=== PATIENT | female | born 2000 | race Caucasian/White ===

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

== ENCOUNTER → 2021-07-01 | Outpatient (CLI) | payer BC ==
[~2021-07-01] MED LIST: CASIRIVIMAB (REGN10933) (EUA) 600 MG, IMDEVIMAB (REGN10987) (EUA) 600 MG in SODIUM CHLO... IVPB ONE; ONDANSETRON 4 MG/2 ML VIAL IVP ONE; SODIUM CHLORIDE 0.9% 50 ML IVPB ONE; SODIUM CHLORIDE 0.9% 500 ML 500 ML in EMPTY BAG 1 BAG IV PRN
[2021-07-01 15:54] VITALS: TEMP 98.9
[2021-07-01 16:04] VITALS: BP 113/67; PULSE 73; RESP 16
== END ==
LOC: PROCWHC3 13:42
PROVIDERS: ATTEND Obstetrics & Gynecology
DX: O98.519 Other viral diseases complicating pregnancy, unspecified trimester (principal); U07.1 COVID-19; Z3A.00 Weeks of gestation of pregnancy not specified; Z91.040 Latex allergy status; Z88.8 Allergy status to other drugs, medicaments and biological substances
CPT/HCPCS: 96360; 96375; J2405; Q0244; M0243

== ENCOUNTER 2022-01-04 05:45 | Inpatient (IN) | payer BC ==
--- NOTE | 2022-01-03 20:55 | P.HPOB ---
History of Present Illness H&P Date: 01/03/22 Chief Complaint: Induction of labor This is a 21 y.o. female, 1, para 0, with an estimated date of confinement of 01/02/2022, estimated gestational age of 40-2/7 weeks, who presents for induction of labor. She complains of irregular contractions, pressure and back pain. has been uncomplicated. labs: Hepatitis B surface antigen-neg RPR-NR Rubella-immune Blood type-O+ Antibody screen-neg HIV-NR Hemoglobin-14.0 Quad-neg 1 hr. GTT-92 GBS-positive OB Hx: Termite Inspector Hx: No hx STDs Social Hx: Single. Works at [employer] Review of Systems Constitutional: Denies chills, Denies fever Eyes: denies blurred vision, denies pain Ears, nose, mouth and throat: Denies headache, Denies sore throat Cardiovascular: Denies chest pain, Denies shortness of breath Respiratory: Denies cough Gastrointestinal: Reports abdominal pain (irregular contractions) Genitourinary: Reports pelvic pain, Reports Musculoskeletal: Reports low back pain Integumentary: Denies pruritus, Denies rash Neurological: Denies numbness, Denies weakness Psychiatric: Denies anxiety, Denies depression Past Medical History Past Medical History: Asthma History of Any Multi-Drug Resistant Organisms: None Reported Past Surgical History: No Surgical Hx Reported Past Psychological History: No Psychological Hx Reported Smoking Status: Never smoker Past Alcohol Use History: None Reported Past Drug Use History: None Reported - Past Family History Father Family Medical History: Diabetes Mellitus Medications and Allergies Home Medications Medication Instructions Recorded Confirmed Type Albuterol Inhaler [Ventolin Hfa 1 - 2 puff INHALATION RT-Q6H PRN 07/03/16 07/03/16 History Inhaler] Allergies Allergy/AdvReac Type Severity Reaction Status Date / Time glycerin Allergy Unknown Verified 07/01/21 15:51 latex Allergy Unknown Verified 07/01/21 15:51 Exam Osteopathic Statement: *. No significant issues noted on an osteopathic structural exam other than those noted in the History and Physical/Consult. HEENT: within normal limits Heart: regular rate and rhythm Lungs: clear to auscultation bilaterally Abdomen: , non-tender Cervix: 2 cm/60%/-2 Extremities: negative Willian's Assessment and Plan (1) 40 weeks gestation of Status: Acute Code(s): Z3A.40 - 40 WEEKS GESTATION OF SNOMED Code(s): 03647860 Plan: Proceed with oxytocin induction of labor. Expectant management. Epidural anesthesia if desired.
[2022-01-04] MEDS ORDERED: OXYTOCIN 10 UNIT/ML 1 ML VIAL IM PRN (06:03)
[2022-01-04] MEDS ORDERED: METHYLERGONOVINE 0.2 MG/ML 1 ML AMP IM PRN (06:03)
[2022-01-04] MEDS ORDERED: LIDOCAINE 0.5% (PF) 5 MG/ML (50 ML SDV) SQ PRN (06:03)
[2022-01-04] MEDS ORDERED: AMPICILLIN 2,000 MG in SODIUM CHLORIDE 0.9% 100 ML IVPB STA (06:03)
[2022-01-04] MEDS ORDERED: OXYTOCIN 30 UNITS/500 ML NS 30 UNIT in SALINE 1 500ML.BAG IV SCH ×2 (06:03→18:56)
[2022-01-04] MEDS ORDERED: CARBOPROST TROMETHAMINE 250 MCG/ML 1 ML AMP IM PRN (06:03)
[2022-01-04] MEDS ORDERED: LIDOCAINE 1% (10MG/ML) FOR IV START INTRADERMA PRN (06:03)
[2022-01-04] MEDS ORDERED: TERBUTALINE 1 MG/ML VIAL SQ PRN (06:03)
[2022-01-04] MEDS: LACTATED RINGERS 1,000 ML IV SCH ×2 (06:21→14:47)
[2022-01-04 06:32] LABS: Basophils # (A) 0.1 k/uL (0-0.2); Basophils % (A) 1 %; Eosinophils # (A) 0.1 k/uL (0-0.7); Eosinophils % (A) 1 %; HCT 40.7 % (34.0-46.0); HGB 13.3 gm/dL (11.4-16.0); Lymphocytes % (A) 22 %; MCH 29.6 pg (25.0-35.0); MCHC 32.7 g/dL (31.0-37.0); MCV 90.5 fL (80.0-100.0); Mean Platelet Volume 8.2; Monocytes # (A) 0.5 k/uL (0-1.0); Monocytes % (A) 5 %; Neutrophils # (A) 6.6 k/uL (1.3-7.7); Neutrophils % (A) 71 %; Platelet Count 216 k/uL (150-450); RBC 4.49 m/uL (3.80-5.40); RDW 13.2 % (11.5-15.5); WBC 9.3 k/uL (3.8-10.6)
[2022-01-04] MEDS: AMPICILLIN 1,000 MG in SODIUM CHLORIDE 0.9% 50 ML IVPB SCH ×2 (10:30→14:04)
[2022-01-04] MEDS: BUTORPHANOL 1 MG/ML 1 ML VIAL IV PRN ×2 (14:44→16:42)
--- NOTE | 2022-01-04 18:49 | P.PROBDLV ---
Vaginal Delivery Note - . Vaginal Delivery Note: The patient progressed to complete dilation after oxytocin induction of labor and artificial rupture membranes with clear fluid noted. She did receive a couple doses of Stadol while in labor. Once reaching complete, she began pushing. She pushed for a short while and 's head came to a crown. With one further push, the 's head delivered across the perineum. She was encouraged to continue pushing to deliver the anterior shoulder but did stop for a minute to catch her breath. Once she did give one further push, the shoulder easily delivered. She is instructed then to stop pushing and nuchal cord 3 was doubly clamped and cut and reduced from around the 's head 3 times. Nose and mouth were bulb suctioned and the infant easily delivered. Infant was initially placed on mother's abdomen and then taken to warmer for evaluation by nursing staff. A viable male is noted with scores of 4 at 1 minute and 8 at 5 minutes and 9 at 10 minutes with infant weight of 7 lbs. 2 oz. Placenta delivered shortly thereafter, intact, with a three-vessel cord. There was fairly marginal cord insertion noted. Uterus contracted fairly well after oxytocin was given and uterine massage was carried out. Inspection of the perineum revealed a second-degree perineal laceration. This area was anesthetized with 1% lidocaine and then sutured with 3-0 and 2-0 Vicryl suture in the usual multilayer fashion. Estimated blood loss is approximately 150 mL's. Also her bladder was drained with a catheter. Mother is in stable condition and was taken to level I nursery for observation.
[2022-01-04] MEDS ORDERED: SIMETHICONE 80 MG CHEWABLE PO PRN (18:56)
[2022-01-04] MEDS ORDERED: HYDROCORTISONE 2.5% RECTAL CREAM 30 GM TUBE RECTAL PRN (18:56)
[2022-01-04] MEDS ORDERED: BENZOCAINE/MENTHOL SPRAY 1 GM/SPRAY AEROSOL TOPICAL PRN (18:56)
[2022-01-04] MEDS ORDERED: diphenhydrAMINE 25 MG CAP PO PRN (18:56)
[2022-01-04] MEDS ORDERED: diphenhydrAMINE 50 MG/ML 1 ML VIAL IVP PRN ×2 (18:56)
[2022-01-04] MEDS ORDERED: ACETAMINOPHEN TAB 325 MG TAB PO PRN (18:56)
[2022-01-04] MEDS ORDERED: diphenhydrAMINE 50 MG CAP PO PRN (18:56)
[2022-01-04] MEDS ORDERED: ZOLPIDEM 5 MG TAB PO PRN (18:56)
[2022-01-04] MEDS ORDERED: LANOLIN CREAM 5 GM TUBE TOPICAL PRN (18:56)
[2022-01-04] MEDS: SENNOSIDES-DOCUSATE SODIUM 1 EACH TAB PO SCH (21:50)
[2022-01-05 06:27] LABS: Basophils % (A) 0 %; Eosinophils # (A) 0.1 k/uL (0-0.7); Eosinophils % (A) 0 %; HCT 38.1 % (34.0-46.0); HGB 12.6 gm/dL (11.4-16.0); Lymphocytes # (A) 2.2 k/uL (1.0-4.8); Lymphocytes % (A) 13 %; MCH 30.2 pg (25.0-35.0); MCHC 33.1 g/dL (31.0-37.0); Mean Platelet Volume 8.5; Monocytes # (A) 0.9 k/uL (0-1.0); Monocytes % (A) 5 %; Neutrophils % (A) 81 %; Platelet Count 210 k/uL (150-450); RBC 4.18 m/uL (3.80-5.40); RDW 13.3 % (11.5-15.5); WBC 17.4 k/uL (3.8-10.6)
--- NOTE | 2022-01-05 08:01 | P.PNOBGVD ---
Subjective - Subjective Principal diagnosis: Status post vaginal delivery day #1 Interval history: Patient is doing well. She is ambulating. She is pumping her breast milk. Lochia is decreasing. Baby is in level I nursery. Pain is well-controlled with no pain medication. Patient reports: Reports appetite normal, Reports voiding normally, Reports pain well controlled, Reports ambulating normally : other (In level I nursery) Objective - Latest Vital Signs Latest vital signs: Vital Signs Temp Pulse Resp BP Pulse Ox 01/05/22 04:00 91 16 116/62 01/04/22 23:54 98.2 F 93 16 121/71 01/04/22 20:30 83 16 125/70 01/04/22 20:00 85 16 134/83 01/04/22 19:30 77 16 122/69 01/04/22 19:15 79 16 148/63 01/04/22 19:00 78 125/71 01/04/22 18:45 76 18 119/64 01/04/22 18:30 80 16 136/76 99 Intake and Output 01/04/22 01/05/22 01/05/22 22:59 06:59 14:59 Output Total 697 Balance -697 Output: Urine 200 Estimated Blood Loss 150 Output, Quantitative 347 Blood Loss - Exam Extremities: Present: normal. Absent: tenderness Abdomen: Present: normal appearance, soft. Absent: distention, tenderness Uterus: Present: normal, firm. Absent: tenderness - Labs Labs: Abnormal Lab Results - Last 24 Hours (Table) 01/05/22 Range/Units 06:03 WBC 17.4 H (3.8-10.6) k/uL Neutrophils # 14.0 H (1.3-7.7) k/uL Assessment and Plan Assessment: Status post vaginal delivery day #1. (1) 40 weeks gestation of Current Visit: No Status: Acute Code(s): Z3A.40 - 40 WEEKS GESTATION OF SNOMED Code(s): 27405586 Plan: Continue with care. Will plan discharge tomorrow. Prescription for breast pump is given today.
[2022-01-05] MEDS: AMPICILLIN 1,000 MG in SODIUM CHLORIDE 0.9% 50 ML IVPB SCH (09:03)
[2022-01-05] MEDS: SENNOSIDES-DOCUSATE SODIUM 1 EACH TAB PO SCH ×3 (09:07→19:51)
[2022-01-05] MEDS: IBUPROFEN 600 MG TAB PO PRN (14:49)
[2022-01-06] MEDS: IBUPROFEN 600 MG TAB PO PRN (00:12)
--- NOTE | 2022-01-06 07:42 | P.DS ---
Providers Date of admission: 01/04/22 05:45 Expected date of discharge: 01/06/22 Attending physician: Soni Gabriel Primary care physician: Stated None - Discharge Diagnosis(es) (1) Normal vaginal delivery Current Visit: Yes Status: Acute Hospital Course: Patient presented for induction of labor at 40 weeks. She underwent a normal vaginal delivery with Dr. Gabriel. Her course was uncomplicated. She denies nausea, vomiting, chest pain, shortness of breath or any calf pain. She'll be discharged home day #2 in stable condition to follow-up with Dr. Gabriel in 6 weeks. Plan - Discharge Summary New Discharge Prescriptions: New Ibuprofen [Motrin] 600 mg PO Q6HR PRN #40 tab PRN Reason: Mild Pain (Scale 1 To 3) Discharge Medication List Ibuprofen [Motrin] 600 mg PO Q6HR PRN #40 tab 01/06/22 [Rx] Follow up Appointment(s)/Referral(s): Soni Gabriel DO [Doctor of Osteopathic Medicine] - 6 Weeks Activity/Diet/Wound Care/Special Instructions: Instructions 1. Do not begin any exercise program for 3 weeks. 2. Do not resume sexual relations for 3 weeks or longer if uncomfortable. 3. You may take tub baths or showers at any time. 4. You may use tampons if desired after 3 weeks. 5. Keep the area of episiotomy (stitches) clean and dry. 6. If you are not nursing, wear a good fitting, supportive bra during the day and limit fluid intake for at least 1 week to prevent breast engorgement. 7. Call the office, [phone], within the next week to make appointment for your 6 week checkup if it has not already been made. 8. Report any of the following occurrences to the doctor promptly: a. Heavy, excessive bleeding b. Chills, fever c. Burning or frequency of urination d. Pain or redness and breasts if nursing e. Increasing pain or swelling in episiotomy (stitches). In addition to the above instructions, the following additional should be followed: 1. No heavy lifting or straining (exercising) until after 6 week checkup. 2. Keep abdominal incision clean and dry: You may wear a dressing if more comfortable. 3. Make office appointment for 10 days after going home or as instructed by her doctor. Discharge Disposition: HOME SELF-CARE
[2022-01-06] MEDS: SENNOSIDES-DOCUSATE SODIUM 1 EACH TAB PO SCH (08:54)
[2022-01-06 16:44] VITALS: BP 133/80; PULSE 86; RESP 16; TEMP 98.6
== END 2022-01-06 16:45 | disposition home or self-care (01) | DRG 807 ==
LOC: 4FBP 05:45
PROVIDERS: ADMIT Obstetrics & Gynecology; ATTEND Obstetrics & Gynecology
PROC: 10E0XZZ Delivery of Products of Conception, External Approach (ICD-10-PCS; principal; 2022-01-04)
PROC: 0KQM0ZZ Repair Perineum Muscle, Open Approach (ICD-10-PCS; 2022-01-04)
PROC: 10907ZC Drainage of Amniotic Fluid, Therapeutic from Products of Conception, Via Natural or Artificial Opening (ICD-10-PCS; 2022-01-04)
DX: O48.0 Post-term pregnancy (principal); Z37.0 Single live birth; O99.824 Streptococcus B carrier state complicating childbirth; Z3A.40 40 weeks gestation of pregnancy; O69.81X0 Labor and delivery complicated by cord around neck, without compression, not applicable or unspecified; O70.1 Second degree perineal laceration during delivery; O99.52 Diseases of the respiratory system complicating childbirth; J45.909 Unspecified asthma, uncomplicated
CPT/HCPCS: 85025; 86850; 86900; 86901

== ENCOUNTER 2023-12-27 08:28 | Emergency (ER) | payer BC ==
[2023-12-27 08:35] VITALS: TEMP 98.2
[2023-12-27 09:10] LABS: Basophils % (A) 0 %; Eosinophils # (A) 0.1 k/uL (0-0.7); Eosinophils % (A) 1 %; HCT 43.5 % (34.0-46.0); HGB 14.3 gm/dL (11.4-16.0); Lymphocytes # (A) 1.9 k/uL (1.0-4.8); Lymphocytes % (A) 23 %; MCH 30.2 pg (25.0-35.0); MCHC 32.9 g/dL (31.0-37.0); MCV 91.7 fL (80.0-100.0); Mean Platelet Volume 7.7; Monocytes # (A) 0.4 k/uL (0-1.0); Monocytes % (A) 4 %; Neutrophils # (A) 5.6 k/uL (1.3-7.7); Neutrophils % (A) 70 %; Platelet Count 231 k/uL (150-450); RBC 4.74 m/uL (3.80-5.40); RDW 12.5 % (11.5-15.5); WBC 8.1 k/uL (3.8-10.6)
[2023-12-27 09:20] LABS: ALT 15 U/L (4-34); AST 23 U/L (14-36); African American GFR (CKD) >90 (>60 ml/min/1.73 sqM); Albumin 4.2 g/dL (3.5-5.0); Alkaline Phosphatase 56 U/L (38-126); Anion Gap 6 mmol/L; Blood Urea Nitrogen 6 mg/dL (7-17); Calcium 9.1 mg/dL (8.4-10.2); Carbon Dioxide 24 mmol/L (22-30); Chloride 108 mmol/L (98-107); Glucose 98 mg/dL (74-99); Non-African American GFR(CKD) >90 (>60 ml/min/1.73 sqM); Potassium 4.2 mmol/L (3.5-5.1); Sodium 138 mmol/L (137-145); Total Bilirubin 0.8 mg/dL (0.2-1.3); Total Protein 6.9 g/dL (6.3-8.2)
--- NOTE | 2023-12-27 09:21 | ED ---
General Adult HPI - General Chief complaint: Vaginal Bleeding Stated complaint: Vaginal Bleeding, 5 wks Time Seen by Provider: 12/27/23 08:39 Source: patient, RN notes reviewed, old records reviewed Mode of arrival: ambulatory Limitations: no limitations - History of Present Illness Initial comments: 23-year-old female with vaginal bleeding. Patient is approximately 5 weeks . She has had vaginal bleeding for the past several days which initially began as spotting. She states she was seen at outside hospital yesterday and had lab work including serum hCG which was reported at 2600. Patient states this morning she passed several clots and believes she may have passed some tissue she is uncertain. She has no abdominal pain at this time. This is her second she has 1 living child - Related Data Previous Rx's Medication Instructions Recorded Ibuprofen [Motrin] 600 mg PO Q6HR PRN #40 tab 01/06/22 Allergies Allergy/AdvReac Type Severity Reaction Status Date / Time glycerin Allergy Rash/Hives Verified 12/27/23 08:36 latex Allergy Rash/Hives Verified 12/27/23 08:36 Review of Systems ROS Statement: Those systems with pertinent positive or pertinent negative responses have been documented in the HPI. ROS Other: All systems not noted in ROS Statement are negative. Past Medical History Past Medical History: Asthma History of Any Multi-Drug Resistant Organisms: None Reported Past Surgical History: No Surgical Hx Reported Past Anesthesia/Blood Transfusion Reactions: No Reported Reaction Past Psychological History: ADD/ADHD Smoking Status: Never smoker Past Alcohol Use History: None Reported Past Drug Use History: None Reported - Past Family History Father Family Medical History: Diabetes Mellitus Additional Family Medical History / Comment(s): General Exam Limitations: no limitations General appearance: alert, in no apparent distress Head exam: Present: atraumatic, normocephalic Eye exam: Present: normal appearance, PERRL ENT exam: Present: normal exam Neck exam: Present: normal inspection. Absent: tenderness Respiratory exam: Present: normal lung sounds bilaterally. Absent: respiratory distress Cardiovascular Exam: Present: regular rate, normal rhythm GI/Abdominal exam: Present: soft. Absent: distended, tenderness, guarding Back exam: Present: normal inspection Neurological exam: Present: alert, oriented X3 Psychiatric exam: Present: normal affect, normal mood Skin exam: Present: warm, dry, intact. Absent: cyanosis, diaphoretic Course Vital Signs 12/27/23 12/27/23 08:29 09:35 Temperature 98.2 F Pulse Rate 73 81 Respiratory 18 16 Rate Blood Pressure 129/77 126/67 O2 Sat by Pulse 98 95 Oximetry Medical Decision Making - Medical Decision Making Was pt. sent in by a medical professional or institution (, DAVID, MANAGED SECURITY SALES CONSULTANT, urgent care, hospital, or fdc...) When possible be specific @ -No Did you speak to anyone other than the patient for history (EMS, parent, family, police, friend...)? What history was obtained from this source @ -No Did you review nursing and triage notes (agree or disagree)? Why? @ -I reviewed and agree with nursing and triage notes Were old charts reviewed (outside hosp., previous admission, EMS record, old EKG, old radiological studies, urgent care reports/EKG's, fdc records)? Report findings @ -No old charts were reviewed Differential Vaginal Bleeding: Spontaneous , threatened , molar , ectopic , bloody show, incompetent cervix, abruptioplacenta, placenta previa, uterine rupture, dysfunctional uterine bleeding, hemorrhage, uterine fibroids, this is not meant to be an all-inclusive list. EKG interpreted by me (3pts min.). @ -As above X-rays interpreted by me (1pt min.). @ -None done CT interpreted by me (1pt min.). @ -None done U/S interpreted by me (1pt. min.). @ -Ultrasound showing small structure within the uterus without pole or gestational sac. What testing was considered but not performed or refused? (CT, X-rays, U/S, labs)? Why? @ -None What meds were considered but not given or refused? Why? @ -None Did you discuss the management of the patient with other professionals (professionals i.e. DAVID Acosta, MANAGED SECURITY SALES CONSULTANT, lab, RT, psych nurse, geriatric social work professor, surgery aid, teacher, correctional officer captain, piano case maker)? Give summary @ -No Was smoking cessation discussed for >3mins.? @ -No Was critical care preformed (if so, how long)? @ -No Were there social determinants of health that impacted care today? How? (Homelessness, low income, unemployed, alcoholism, drug addiction, transportation, low edu. Level, literacy, decrease access to med. care, correction, rehab)? @ -No Was there de-escalation of care discussed even if they declined (Discuss DNR or withdrawal of care, Hospice)? DNR status @ -No What co-morbidities impacted this encounter? (DM, HTN, Smoking, COPD, CAD, Cancer, CVA, ARF, Chemo, Hep., AIDS, mental health diagnosis, sleep apnea, m orbid obesity)? @ -None Was patient admitted / discharged? Hospital course, mention meds given and route, prescriptions, significant lab abnormalities, going to OR and other pertinent info. @23-year-old female presenting with vaginal bleeding in early , suspect miscarriage. Patient had blood drawn at [facility] with a beta- hCG of 2600. Today it is 1900. Ultrasound shows an intrauterine cystic structure without gestational sac or pole. The patient has no abdominal pain or tenderness on exam. Her vitals are stable. We did discuss continued surveillance including repeat beta-hCG in 48 hours which the patient has a prescription for. We discussed the need for return with any abdominal pain. She will follow with obstetrics. She may require repeat ultrasound depending on beta-hCG levels. Undiagnosed new problem with uncertain prognosis? @ -No Drug Therapy requiring intensive monitoring for toxicity (Heparin, Nitro, Insulin, Cardizem)? @ -No Were any procedures done? @ -No Diagnosis/symptom? @ -Vaginal bleeding in early , likely miscarriage Acute, or Chronic, or Acute on Chronic? @ -Acute Uncomplicated (without systemic symptoms) or Complicated (systemic symptoms)? @ -Default Side effects of treatment? @ -No Exacerbation, Progression, or Severe Exacerbation? @ -No Poses a threat to life or bodily function? How? (Chest pain, [place], [place], pneumonia, PE, COPD, DKA, ARF, appy, cholecystitis, CVA, Diverticulitis, Homicidal, Suicidal, threat to staff... and all critical care pts) @Low risk at this time - Lab Data Result diagrams: 12/27/23 08:55 12/27/23 08:55 Lab Results 12/27/23 12/27/23 12/27/23 Range/Units 08:55 08:55 08:55 WBC 8.1 (3.8-10.6) k/uL RBC 4.74 (3.80-5.40) m/uL Hgb 14.3 (11.4-16.0) gm/dL Hct 43.5 (34.0-46.0) % MCV 91.7 (80.0-100.0) fL MCH 30.2 (25.0-35.0) pg MCHC 32.9 (31.0-37.0) g/dL RDW 12.5 (11.5-15.5) % Plt Count 231 (150-450) k/uL MPV 7.7 Neutrophils % 70 % Lymphocytes % 23 % Monocytes % 4 % Eosinophils % 1 % Basophils % 0 % Neutrophils # 5.6 (1.3-7.7) k/uL Lymphocytes # 1.9 (1.0-4.8) k/uL Monocytes # 0.4 (0-1.0) k/uL Eosinophils # 0.1 (0-0.7) k/uL Basophils # 0.0 (0-0.2) k/uL Sodium 138 (137-145) mmol/L Potassium 4.2 (3.5-5.1) mmol/L Chloride 108 H (98-107) mmol/L Carbon Dioxide 24 (22-30) mmol/L Anion Gap 6 mmol/L BUN 6 L (7-17) mg/dL Creatinine 0.54 (0.52-1.04) mg/dL Est GFR (CKD-EPI)AfAm >90 (>60 ml/min/1.73 sqM) Est GFR (CKD-EPI)NonAf >90 (>60 ml/min/1.73 sqM) Glucose 98 (74-99) mg/dL Calcium 9.1 (8.4-10.2) mg/dL Total Bilirubin 0.8 (0.2-1.3) mg/dL AST 23 (14-36) U/L ALT 15 (4-34) U/L Alkaline Phosphatase 56 (38-126) U/L Total Protein 6.9 (6.3-8.2) g/dL Albumin 4.2 (3.5-5.0) g/dL HCG, Quant 1901.1 mIU/mL Blood Type O Positive Blood Type Recheck O Pos Bld Type Recheck Status No Disposition Clinical Impression: Threatened Disposition: HOME SELF-CARE Condition: Fair Instructions (If sedation given, give patient instructions): Threatened Miscarriage (ED) Additional Instructions: Please have your level checked in 48 hours. Please return to the emergency department with worsening or changing symptoms including abdominal pain, heavy vaginal bleeding, lightheadedness. Please follow-up with your counter stitcher. Is patient prescribed a controlled substance at d/c from ED?: No Referrals: None,Stated [Primary Care Provider] - 1-2 days Time of Disposition: 10:18
[2023-12-27 09:36] LABS: HCG,Quantitative Serum 1901.1 mIU/mL
--- NOTE | 2023-12-27 09:57 | US ---
EXAMINATION TYPE: Transabdominal DATE OF EXAM: 12/27/2023 9:31 AM COMPARISON: NONE CLINICAL INDICATION: Female, 23 years old with history of Vaginal bleeding in early ; Bleedi ng x a couple days, worse yesterday. Cramping yesterday, none today. . EXAM PERFORMED: Transvaginal (TV) and Transabdominal (TA) EXAM MEASUREMENTS: GESTATIONAL AGE / DATING Physician Established: Not yet established. Dates by LMP: (7 weeks/4 days) EDC: 08/10/2024 Dates by First Scan: This is first scan Dates by Current Scan for: Possible gestational sac seen at this time only, measures out of range. MATERNAL ANATOMY Uterus: 12.5 x 6.6 x 4.8 cm. Anechoic fluid appearance in cervix: 2.1 x 0.7 x 0.1 cm. Right Ovary: 3.6 x 2.5 x 2.3 cm. Isoechoic area with vascularity seen: 1.9 x 1.8 x 2.0 cm. Left Ovary: 2.0 x 5.9 x 1.9 cm. Post CDS / Adnexa: Free fluid seen in right adnexa. Presence of free fluid: Free fluid seen in right adnexa. Presence of corpus luteal cyst: Possible within right ovary, isoechoic area with vascularity seen: 1. 9 x 1.8 x 2.0 cm. Presence of subchorionic bleed: No GESTATION / SURVEY CRL: Not seen MSD: Possible sac seen measures 0.54 cm. (Out of range) Yolk Sac (normal less than 6mm): Not seen Heart Rate: no pole seen Rhythm: no pole seen IUP: Possible gestational sac that measures out of range. Date of LMP: 11/04/2023 Beta HcG (if available): Not available IMPRESSION: Small anechoic intrauterine cystic structure without evidence for yolk sac or pole at this time . This could represent gestational sac if the patient has a positive beta hCG of mIU/mL, however give n its size and dates by last menstrual period findings could represent failed versus ectopi c versus abnormal intrauterine based on this exam alone. Follow-up with pelvic ul trasound in 7-10 days and serial beta-hCG studies are recommended to en sure further development of t he fetus.
[2023-12-27 10:06] VITALS: RESP 16
[2023-12-27 10:18] LABS: Appearance,Urine Turbid (Clear); Bilirubin,Urine Negative (Negative); Blood,Urine Large (Negative); Color,Urine Dark Red; Glucose,Urine (UA) Negative (Negative); Ketones,Urine Negative (Negative); Leukocyte Esterase,Urine Moderate (Negative); Nitrite,Urine Negative (Negative); PH, Urine 6.5 (5.0-8.0); Protein,Urine 1+ (Negative); RBC,Urine >182 /hpf (0-5); Urobilinogen,Urine <2.0 mg/dL (<2.0)
[2023-12-27 10:20] LABS: Specific Gravity,Urine 1.012 (1.001-1.035)
[2023-12-27 10:31] VITALS: BP 114/71; PULSE 71
== END 2023-12-27 10:31 | disposition home or self-care (01) ==
LOC: EC 08:28
DX: O20.0 Threatened abortion (principal); Z91.040 Latex allergy status; Z88.8 Allergy status to other drugs, medicaments and biological substances; Z3A.01 Less than 8 weeks gestation of pregnancy
CPT/HCPCS: 36415; 76801; 76817; 80053; 81001; 84702; 85025; 86900; 86901; 99284